=== PATIENT | female | born 1990 | race Caucasian/White ===

== ENCOUNTER 2016-09-20 09:38 | Inpatient (IN) | payer OTHER ==
[2016-09-20 09:53] VITALS: BMI 22.2
[2016-09-20] MEDS ORDERED: SODIUM CHLORIDE 1,000 ML IV STA (10:27)
[2016-09-20] MEDS ORDERED: morphine CARPU-JECT 4 MG/1 ML DISP.SYRIN IVPUSH ONE (10:27)
[2016-09-20] MEDS ORDERED: morphine CARPU-JECT 2 MG/1 ML DISP.SYRIN ONE (10:29)
--- NOTE | 2016-09-20 10:33 | PDOC ---
History of Present Illness - General Chief Complaint: Pain, Acute Stated Complaint: NAUSEA, LOWER PELVIC PAIN Time Seen by Provider: 09/20/16 10:01 History Source: Patient - History of Present Illness Timing/Duration: reports: getting worse Quality: reports: cramping Past History - Past Medical History Allergies/Adverse Reactions: Allergies Allergy/AdvReac Type Severity Reaction Status Date / Time ceftriaxone sodium Allergy Verified 09/20/16 09:53 [From Rocephin] Home Medications: Ambulatory Orders Levonorgestrel-Ethin Estradiol [Orsythia-28 Tablet] 1 each PO DAILY 03/27/15 Mesalamine [Lialda] 2.4 gm PO DAILY 03/27/15 Mesalamine Enema [Rowasa *Enema*] 7 gm RC HS #0 enema 03/28/15 Cholecalciferol (Vitamin D3) [Vitamin D3 -] 1,000 unit PO DAILY 09/20/16 Metronidazole 500 mg PO TID 09/20/16 Prednisone [Deltasone -] 20 mg PO BID 09/20/16 Anemia: No Asthma: No Cancer: No Cardiac Disorders: No CVA: No COPD: No CHF: No Dementia: No GI Disorders: Yes (COLITIS) Disorders: No HTN: No Hypercholesterolemia: No Liver Disease: No Seizures: No Thyroid Disease: No - Psycho/Social/Smoking Cessation Hx Suicidal Ideation: No Smoking History: Never smoked Hx Alcohol Use: Yes (OCCSIONALLY) Drug/Substance Use Hx: No Substance Use Type: None Review of Systems - Review of Systems Constitutional: No: Chills, Fever ABD/GI: Yes: Blood Streaked Bowels, Diarrhea, Nausea, Rectal Bleeding. No: Vomiting : No: Dysuria *Physical Exam - Vital Signs Last Vital Signs Temp Pulse Resp BP Pulse Ox 98.2 F 81 16 110/66 97 09/20/16 09:50 09/20/16 09:50 09/20/16 09:50 09/20/16 09:50 09/20/16 09:50 - Physical Exam General Appearance: Yes: Appropriately Dressed. No: Apparent Distress HEENT: positive: Normal Voice Neck: positive: Supple Respiratory/Chest: negative: Respiratory Distress Gastrointestinal/Abdominal: positive: Normal Bowel Sounds, Tender (to lower abd) , Soft. negative: Distended, Guarding, Rebound Musculoskeletal: negative: CVA Tenderness Integumentary: positive: Dry, Warm Neurologic: positive: Fully Oriented, Alert, Normal Mood/Affect ED Treatment Course - LABORATORY CBC & Chemistry Diagram: 09/20/16 10:50 09/20/16 10:50 Medical Decision Making - Medical Decision Making 09/20/16 10:29 25-year-old female history of ulcerative colitis, proctitis, no surgeries to date on medications, here with lower abdominal pain with bloody, watery diarrhea and nausea x several days. States she contacted her GI doctor last week and now on prednisone and flagyl, but feels that symptoms are worsening, especially in the mornings and at nights. No fever or chills. Has not had a CAT scan in several years per pt See exam IBD w/ abd pain and bloody diarrhea On pred and flagyl w/ no improvement Stable and well elsie +tp to lower abd -pain control -IVF -labs -?CT scan, will d/w w/ GI,Dr Ingram 09/20/16 10:32 09/20/16 10:58 Case d/w pt's GI who reccomends CT 09/20/16 14:10 CT with severe inflammatory colitis to right and transverse colon. No free air or abscess. Discussed with Dr. Flores who wants patient admitted. Orders placed by 09/20/16 14:51 *DC/Admit/Observation/Transfer Diagnosis at time of Disposition: Ulcerative colitis Qualifiers: Ulcerative colitis location: unspecified ulcerative colitis location Digestive disease complication type: with rectal bleeding Qualified Code(s): K51.911 - Ulcerative colitis, unspecified with rectal bleeding - Discharge Dispostion Condition at time of disposition: Stable Admit: Yes
[2016-09-20 11:10] LABS: BASOPHIL 0.2 % (0-2.0); EOSINOPHIL 0.8 % (0-4.5); MCH 29.8 pg (25.7-33.7); MCHC 33.4 g/dl (32.0-36.0); MEAN CELL VOLUME 89.3 fl (80-96); MEAN PLT VOLUME 8.3 fl (7.5-11.1); NEUTROPHILS 76.5 % (42.8-82.8); PLATELET COUNT 244 K/MM3 (134-434); RDW 12.6 % (11.6-15.6); WHITE BLOOD COUNT 9.7 K/mm3 (4.0-10.0)
[2016-09-20 11:33] LABS: ALBUMIN 3.5 g/dl (3.4-5.0); ANION GAP 9 (8-16); BILIRUBIN,TOTAL 0.2 mg/dL (0.2-1.0); CALCIUM 9.5 mg/dL (8.5-10.1); CO2 29 mmol/L (21-32); CREATININE 0.9 mg/dL (0.55-1.02); GLUCOSE,RANDOM 117 mg/dL (74-106); SGOT/AST 13 U/L (15-37); SGPT/ALT 20 U/L (12-78); TOT PROT 7.6 g/dl (6.4-8.2)
[2016-09-20 11:36] LABS: ALK PHOS 74 U/L (45-117)
[2016-09-20 11:44] LABS: INR 1.05 (0.82-1.09); PROTHROMBIN TIME (PATIENT) 11.6 SEC (9.98-11.88)
--- NOTE | 2016-09-20 12:11 | CON.GI ---
Consult Consult Specialty:: Gastroenterology Referred by:: BENY Castañeda Reason for Consultation:: Bloody diarrhea - History of Present Illness Chief Complaint: Abdominal cramps and bloody diarrhea for the past week. History of Present Illness: 25W with h/o ulcerative colitis most active in the rectosigmoid colon who developed diffuse colicky abdominal pain about 1 week ago with looser more frequent bowel movements. On 09/16 she developed blood diarrhea. The episodes however are confined to an rotary cutter feeder 2 hours session and then again about 10PM with no BMs in between. The flare coincides with onset of her menses. She denies fevers. She did have wisdom tooth extraction in 08/20 when she took a course of Z-miller. NO foreign travel. She did have C difficile colitis in the past. She was started on Flagyl and Prednisone 20mg BID on 09/[address] Wheeler in coverage. I last saw Manasa in 07/19 in the office for a flare of her colitis. I advised a trial of Azathioprine and discussed the immunosuppressive side effects and risk of lymphoma associated with it's usage. She had previously refused a return to a biologic agent as she developed leukopenia and pneumonia while on Remicade in the past. She expressed that she found it difficult to continue with me as she is living in [facility]. I referred her to Dr Chester Frazier but she has chosen to be followed by Dr. Tyler Bear but as yet has not met him. Her colitis was under good control with Lialda and Rowasa enemas since I last saw her until now. She has lost about 5 lbs this week. Her last colonoscopy was with me on 03/28/15 when she was found to only has proctitis. She has had a fistula in ano in the past. 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 Place of : [facility] History of Recent Travel: No Home Medications - Allergies Allergies/Adverse Reactions: Allergies Allergy/AdvReac Type Severity Reaction Status Date / Time ceftriaxone sodium Allergy Verified 09/20/16 09:53 [From Rocephin] - Home Medications Home Medications: Ambulatory Orders Levonorgestrel-Ethin Estradiol [Orsythia-28 Tablet] 1 each PO DAILY 03/27/15 Mesalamine [Lialda] 2.4 gm PO DAILY 03/27/15 Mesalamine Enema [Rowasa *Enema*] 7 gm RC HS #0 enema 03/28/15 Cholecalciferol (Vitamin D3) [Vitamin D3 -] 1,000 unit PO DAILY 09/20/16 Metronidazole 500 mg PO TID 09/20/16 Prednisone [Deltasone -] 20 mg PO BID 09/20/16 Family Disease History - Family Disease History Family Disease History: Other: Father (healthy), Mother (hyperlipidemia) Review of Systems - Review of Systems Constitutional: reports: Malaise, Unintentional Wgt. Loss Eyes: reports: No Symptoms HENT: reports: No Symptoms Neck: reports: No Symptoms Cardiovascular: reports: No Symptoms Respiratory: reports: No Symptoms Gastrointestinal: reports: Abdominal Pain, Diarrhea, Rectal Bleeding Genitourinary: reports: No Symptoms Integumentary: reports: No Symptoms Neurological: reports: No Symptoms Endocrine: reports: No Symptoms Hematology/Lymphatic: reports: No Symptoms Psychiatric: reports: Other (has stress at work) Physical Exam-GI Vital Signs: Vital Signs Temperature 98.2 F 09/20/16 09:50 Pulse Rate 81 09/20/16 09:50 Respiratory Rate 16 09/20/16 09:50 Blood Pressure 110/66 09/20/16 09:50 O2 Sat by Pulse Oximetry (%) 97 09/20/16 09:50 CBC,CMP WBC 9.7 K/mm3 (4.0-10.0) D 09/20/16 10:50 RBC 4.47 M/mm3 (3.60-5.2) 09/20/16 10:50 Hgb 13.3 GM/dL (10.7-15.3) 09/20/16 10:50 Hct 39.9 % (32.4-45.2) 09/20/16 10:50 MCV 89.3 fl (80-96) 09/20/16 10:50 MCHC 33.4 g/dl (32.0-36.0) 09/20/16 10:50 RDW 12.6 % (11.6-15.6) 09/20/16 10:50 Plt Count 244 K/MM3 (134-434) D 09/20/16 10:50 MPV 8.3 fl (7.5-11.1) 09/20/16 10:50 Neutrophils % 76.5 % (42.8-82.8) D 09/20/16 10:50 Lymphocytes % 13.3 % (8-40) D 09/20/16 10:50 Monocytes % 9.2 % (3.8-10.2) 09/20/16 10:50 Eosinophils % 0.8 % (0-4.5) 09/20/16 10:50 Basophils % 0.2 % (0-2.0) 09/20/16 10:50 Sodium 142 mmol/L (136-145) 09/20/16 10:50 Potassium 3.6 mmol/L (3.5-5.1) 09/20/16 10:50 Chloride 104 mmol/L (98-107) 09/20/16 10:50 Carbon Dioxide 29 mmol/L (21-32) 09/20/16 10:50 Anion Gap 9 (8-16) 09/20/16 10:50 BUN 14 mg/dL (7-18) D 09/20/16 10:50 Creatinine 0.9 mg/dL (0.55-1.02) D 09/20/16 10:50 Creat Clearance w eGFR > 60 (>60) 09/20/16 10:50 Random Glucose 117 mg/dL (74-106) H D 09/20/16 10:50 Calcium 9.5 mg/dL (8.5-10.1) 09/20/16 10:50 Total Bilirubin 0.2 mg/dL (0.2-1.0) D 09/20/16 10:50 AST 13 U/L (15-37) L 09/20/16 10:50 ALT 20 U/L (12-78) 09/20/16 10:50 Alkaline Phosphatase 74 U/L (45-117) D 09/20/16 10:50 Total Protein 7.6 g/dl (6.4-8.2) 09/20/16 10:50 Albumin 3.5 g/dl (3.4-5.0) 09/20/16 10:50 Constitutional: Yes: Well Nourished, Anxious Eyes: Yes: Conjunctiva Clear HENT: Yes: Atraumatic Neck: Yes: Supple Cardiovascular: Yes: Regular Rate and Rhythm Respiratory: Yes: CTA Bilaterally Gastrointestinal Inspection: Yes: WNL ...Auscultate: Yes: Normoactive Bowel Sounds ...Palpate: Yes: Soft, Other (nontender at present but has gotten morphine) ...Percussion: Yes: Dullness ...Rectal Exam: Yes: Guaiac Positive Musculoskeletal: Yes: WNL Extremities: Yes: WNL Edema: No Labs: CBC, BMP 09/20/16 10:50 09/20/16 10:50 INR, PTT INR 1.05 (0.82-1.09) 09/20/16 10:50 Problem List - Problems (1) Ulcerative colitis confined to rectum Code(s): K51.20 - ULCERATIVE (CHRONIC) PROCTITIS WITHOUT COMPLICATIONS (2) Bloody diarrhea Code(s): R19.7 - DIARRHEA, UNSPECIFIED (3) Abdominal pain Code(s): R10.9 - UNSPECIFIED ABDOMINAL PAIN (4) Weight loss Code(s): R63.4 - ABNORMAL WEIGHT LOSS Assessment/Plan Flare of ulcerative colitis vs Clostridia difficile colitis or both. Will obtain CT scan to help assess th extent of colitis and continue the steroids and Flagyl. I have discussed the need to provide a stool for C. diff toxin assay and for enteric pathogens. I have discussed the likely need for a colonoscopy this week to assess the extent and severity of her colitis which would guide further therapeutic decisions. She is aware of nash risks for perforation and hemorrhage. We again discussed azathioprine and the biologic agents being used for Crohn's Disease ad their risks of immune suppression and lymphoma risk. Her mother was present.
[2016-09-20] MEDS ORDERED: HYDROCORTISONE SOD SUCCINATE 2 ML ONE (13:52)
[2016-09-20] MEDS: DEXTROSE 5%-0.45% SALINE 1,000 ML IV SCH ×2 (14:00→18:53)
[2016-09-20] MEDS: HYDROCORTISONE SOD SUCCINATE 100 MG/2 ML VIAL IVPB SCH ×2 (14:20→18:47)
--- NOTE | 2016-09-20 15:58 | PN ---
Teaching Attending Note Name of Resident: Aggie Mac ATTENDING PHYSICIAN STATEMENT I saw and evaluated the patient. I reviewed the resident's note and discussed the case with the resident. I agree with the resident's findings and plan as documented. SUBJECTIVE:25 year old female with history of UC c/o 1 week history of worsening abdominal pain and bloody diarrhea. No fever. Took azithromycin 3 weeks ago for dental abscess. OBJECTIVE: Vital Signs Temperature 98.2 F 09/20/16 09:50 Pulse Rate 81 09/20/16 09:50 Respiratory Rate 16 09/20/16 09:50 Blood Pressure 110/66 09/20/16 09:50 O2 Sat by Pulse Oximetry (%) 97 09/20/16 09:50 HEENT AAO x 3 Neuro intact Abd soft mild tenderness Laboratory 09/20/16 09/20/16 09/20/16 10:50 10:50 10:50 WBC 9.7 K/mm3 D K/mm3 (4.0-10.0) RBC 4.47 M/mm3 M/mm3 (3.60-5.2) Hgb 13.3 GM/dL GM/dL (10.7-15.3) Hct 39.9 % % (32.4-45.2) MCV 89.3 fl fl (80-96) MCHC 33.4 g/dl g/dl (32.0-36.0) RDW 12.6 % % (11.6-15.6) Plt Count 244 K/MM3 D K/MM3 (134-434) MPV 8.3 fl fl (7.5-11.1) Neutrophils % 76.5 % D % (42.8-82.8) Lymphocytes % 13.3 % D % (8-40) Monocytes % 9.2 % % (3.8-10.2) Eosinophils % 0.8 % % (0-4.5) Basophils % 0.2 % % (0-2.0) INR Sodium 142 mmol/L mmol/L (136-145) Potassium 3.6 mmol/L mmol/L (3.5-5.1) Chloride 104 mmol/L mmol/L (98-107) Carbon Dioxide 29 mmol/L mmol/L (21-32) Anion Gap 9 (8-16) BUN 14 mg/dL D mg/dL (7-18) Creatinine 0.9 mg/dL D mg/dL (0.55-1.02) Creat Clearance w eGFR > 60 (>60) Random Glucose 117 mg/dL H D mg/dL (74-106) Calcium 9.5 mg/dL mg/dL (8.5-10.1) Total Bilirubin 0.2 mg/dL D mg/dL (0.2-1.0) AST 13 U/L L U/L (15-37) ALT 20 U/L U/L (12-78) Alkaline Phosphatase 74 U/L D U/L (45-117) Total Protein 7.6 g/dl g/dl (6.4-8.2) Albumin 3.5 g/dl g/dl (3.4-5.0) Urine HCG, Qual Negative Blood Type Antibody Screen 09/20/16 09/20/16 10:50 10:50 WBC RBC Hgb Hct MCV MCHC RDW Plt Count MPV Neutrophils % Lymphocytes % Monocytes % Eosinophils % Basophils % INR 1.05 (0.82-1.09) Sodium Potassium Chloride Carbon Dioxide Anion Gap BUN Creatinine Creat Clearance w eGFR Random Glucose Calcium Total Bilirubin AST ALT Alkaline Phosphatase Total Protein Albumin Urine HCG, Qual Blood Type A POSITIVE Antibody Screen Negative ASSESSMENT AND PLAN: 25 year old with abdominal pain and bloody diarrhea secondary to UC flare - r/o cdiff ( recent antibiotics) - IVF - pain control with IV morphine PRN - IV steroids high dose - colonoscopy when stable -monitor H&H - IV antibiotics Admit as inpatient , expected length of medically necessary hospitalization is greater then 2 midnights . -
[2016-09-20] MEDS: METRONIDAZOLE 500 MG PREMIXED 100 ML IVPB SCH (18:54)
--- NOTE | 2016-09-20 19:07 | HP ---
CHIEF COMPLAINT:blood diarrhe PCP: Dr. Ingram HISTORY OF PRESENT ILLNESS: 25 year old female with a pMHS of ulcerative colitis,(see's Dr. Ingram), on mesalaime and prenisone prn, complaining of three day history of watery-bloody diarrhea and abdominal/pelvic pain. Denies fever, n, v. Patient does state that she completed a course of antibiotics in Aug,. ER course was notable for: (1)CT scan : inflammatory changes; no free air/abscess Recent Travel: no PAST MEDICAL HISTORY: ulcerative colitis PAST SURGICAL HISTORY: no Social History: Smoking:no Alcohol:no Drugs: no Family History: Allergies ceftriaxone sodium [From Rocephin] Allergy (Verified 09/20/16 09:53) HOME MEDICATIONS: Home Medications Medication Instructions Recorded Levonorgestrel-Ethin Estradiol 1 each PO DAILY 03/27/15 [Orsythia-28 Tablet] Mesalamine [Lialda] 2.4 gm PO DAILY 03/27/15 Mesalamine Enema [Rowasa *Enema*] 7 gm RC HS #0 enema 03/28/15 Cholecalciferol (Vitamin D3) 1,000 unit PO DAILY 09/20/16 [Vitamin D3 -] Metronidazole 500 mg PO TID 09/20/16 Prednisone [Deltasone -] 20 mg PO BID 09/20/16 REVIEW OF SYSTEMS CONSTITUTIONAL: Absent: fever, chills, diaphoresis, generalized weakness, malaise, loss of appetite, weight change HEENT: Absent: rhinorrhea, nasal congestion, throat pain, throat swelling, difficulty swallowing, mouth swelling, ear pain, eye pain, visual changes CARDIOVASCULAR: Absent: chest pain, syncope, palpitations, irregular heart rate, lightheadedness , peripheral edema RESPIRATORY: Absent: cough, shortness of breath, dyspnea with exertion, orthopnea, wheezing, stridor, hemoptysis GASTROINTESTINAL: Positive: abdominal pain, hematochezia, diarrhea Absent: , abdominal distension, nausea, vomiting,, constipation, melena, GENITOURINARY: Absent: dysuria, frequency, urgency, hesitancy, hematuria, flank pain, genital pain MUSCULOSKELETAL: Absent: myalgia, arthralgia, joint swelling, back pain, neck pain SKIN: Absent: rash, itching, pallor HEMATOLOGIC/IMMUNOLOGIC: Absent: easy bleeding, easy bruising, lymphadenopathy, frequent infections ENDOCRINE: Absent: unexplained weight gain, unexplained weight loss, heat intolerance, cold intolerance NEUROLOGIC: Absent: headache, focal weakness or paresthesias, dizziness, unsteady gait, seizure, mental status changes, bladder or bowel incontinence PSYCHIATRIC: Absent: anxiety, depression, suicidal or homicidal ideation, hallucinations. PHYSICAL EXAMINATION Vital Signs - 24 hr 09/20/16 09/20/16 16:52 18:28 Temperature 98.6 F 98.6 F Pulse Rate 76 Pulse Rate [ 84 Left Radial] Respiratory 14 20 Rate Blood Pressure 116/60 Blood Pressure 112/69 [Right Arm] O2 Sat by Pulse 100 99 Oximetry (%) GENERAL: Awake, alert, and fully oriented, in no acute distress. HEAD: Normal with no signs of trauma. EYES: Pupils equal, round and reactive to light, extraocular movements intact, sclera anicteric, conjunctiva clear. No lid lag. EARS, NOSE, THROAT: Ears normal, nares patent, oropharynx clear without exudates. Moist mucous membranes. NECK: Normal range of motion, supple without lymphadenopathy, JVD, or masses. LUNGS: Breath sounds equal, clear to auscultation bilaterally. No wheezes, and no crackles. No accessory muscle use. HEART: Regular rate and rhythm, normal S1 and S2 without murmur, rub or gallop. ABDOMEN: Soft, tender with palpation of lower abdomen/pelvis, not distended, normoactive bowel sounds, no guarding, no rebound, no masses. No hepatomegaly or splenomegaly. MUSCULOSKELETAL: Normal range of motion at all joints. No bony deformities or tenderness. No CVA tenderness. UPPER EXTREMITIES: 2+ pulses, warm, well-perfused. No cyanosis. No clubbing. No peripheral edema. LOWER EXTREMITIES: 2+ pulses, warm, well-perfused. No calf tenderness. No peripheral edema. NEUROLOGICAL: Cranial nerves II-XII intact. Normal speech. Normal gait. PSYCHIATRIC: Cooperative. Good eye contact. Appropriate mood and affect. SKIN: Warm, dry, normal turgor, no rashes or lesions noted, normal capillary refill. Current Medications Generic Name Dose Route Start Last Admin Trade Name Freq PRN Reason Stop Dose Admin Hydrocortisone Sodium Succinate 100 mg 09/20/16 12:30 09/20/16 18:47 Solu-Cortef - IVPB Not Given Q8H-IV CASH Metronidazole 100 mls @ 100 mls/hr 09/20/16 18:00 09/20/16 18:54 Flagyl 500mg Premixed Ivpb - IVPB 09/27/16 17:59 100 mls/hr Q8H-IV CASH Administration Dextrose/Sodium Chloride 1,000 mls @ 125 mls/hr 09/20/16 12:30 09/20/16 18:53 D5-1/2ns - IV 125 mls/hr ASDIR CASH Administration ASSESSMENT/PLAN: 25 year old female with a PMHx of ulcerative colitis, on mesalamine and prn prednisone, follow Dr. Ingram, presents with hematochezia, diarrhea and abdominal pain x3 days. admitted for ulcertive colitis flare up 1. Diarrhea secondary to ulcerative colitis flare vs c diff -CT scan showing severely inflamed colitis worse at hepatic flexure; no free air or abscess -Flyagl 599mg IVPB -Hydrocortisone Sodium Succinate 100mg IVPB -protonix 40mg po daily -D5 1/2 NS 125mls hr -clear liq diet -colonoscopy as per GI -GI consult FEN: Fluids: D5NS 125mls.hr Electrolytes: wnl Diet: clear liq VTE prophylaxis: ambulate; scd Disposition: acute flare; iv antbx, steroids, possible colonoscopy Problem List - Problem (1) Abdominal pain Code(s): R10.9 - UNSPECIFIED ABDOMINAL PAIN (2) Bloody diarrhea Code(s): R19.7 - DIARRHEA, UNSPECIFIED (3) Ulcerative colitis Code(s): K51.90 - ULCERATIVE COLITIS, UNSPECIFIED, WITHOUT COMPLICATIONS Qualifiers: Ulcerative colitis location: unspecified ulcerative colitis location Digestive disease complication type: with rectal bleeding Qualified Code(s) : K51.911 - Ulcerative colitis, unspecified with rectal bleeding (4) Ulcerative colitis confined to rectum Code(s): K51.20 - ULCERATIVE (CHRONIC) PROCTITIS WITHOUT COMPLICATIONS Visit type - Emergency Visit Emergency Visit: Yes ED Registration Date: 09/20/16 Care time: The patient presented to the Emergency Department on the above date and was hospitalized for further evaluation of their emergent condition. - New Patient This patient is new to me today: Yes Date on this admission: 09/20/16 - Critical Care Critical Care patient: No
[2016-09-21] MEDS: HYDROCORTISONE SOD SUCCINATE 100 MG/2 ML VIAL IVPB SCH ×3 (01:15→18:05)
[2016-09-21] MEDS: METRONIDAZOLE 500 MG PREMIXED 100 ML IVPB SCH ×3 (01:15→18:55)
[2016-09-21] MEDS ORDERED: morphine CARPU-JECT 2 MG/1 ML DISP.SYRIN IVPUSH PRN (03:13)
[2016-09-21] MEDS ORDERED: ACETAMINOPHEN 325 MG TABLET (FP) ONE (03:17)
[2016-09-21] MEDS: ACETAMINOPHEN 325 MG TABLET (FP) PO PRN (03:19)
[2016-09-21] MEDS: DEXTROSE 5%-0.45% SALINE 1,000 ML IV SCH ×2 (05:18→21:58)
[2016-09-21 08:11] LABS: BASOPHIL 0.1 % (0-2.0); EOSINOPHIL 0.1 % (0-4.5); MCH 29.7 pg (25.7-33.7); MCHC 33.3 g/dl (32.0-36.0); MEAN CELL VOLUME 89.3 fl (80-96); MEAN PLT VOLUME 8.3 fl (7.5-11.1); NEUTROPHILS 77.7 % (42.8-82.8); PLATELET COUNT 195 K/MM3 (134-434); RDW 12.8 % (11.6-15.6); WHITE BLOOD COUNT 7.9 K/mm3 (4.0-10.0)
[2016-09-21 08:51] LABS: ALBUMIN 2.8 g/dl (3.4-5.0); ANION GAP 10 (8-16); CALCIUM 8.4 mg/dL (8.5-10.1); CO2 26 mmol/L (21-32); GLUCOSE,RANDOM 149 mg/dL (74-106); SGOT/AST 12 U/L (15-37)
[2016-09-21 10:13] LABS: ALK PHOS 57 U/L (45-117); BILIRUBIN,TOTAL 0.2 mg/dL (0.2-1.0); C-REACTIVE PROTEIN 3.4 MG/DL (0.00-0.3); CREATININE 0.9 mg/dL (0.55-1.02); SGPT/ALT 15 U/L (12-78); TOT PROT 6.1 g/dl (6.4-8.2)
[2016-09-21] MEDS: PANTOPRAZOLE SODIUM 100 ML IVPB SCH (10:46)
--- NOTE | 2016-09-21 15:13 | PN ---
Teaching Attending Note Name of Resident: Aggie Mac ATTENDING PHYSICIAN STATEMENT I saw and evaluated the patient. I reviewed the resident's note and discussed the case with the resident. I agree with the resident's findings and plan as documented. SUBJECTIVE:had 1 loose stool in the middle of the night with minimal blood on the toilet paper. no repeated episodes since then. tolerating liquid diet and requesting to eat solid food. states that she has been controlled on mesalamine and suppositories since her dx of UC in 2011. at that time she was initially treated for cdiff and then had colonoscopy and dx with UC on bx but was limited to the rectum. would have short boughts of loose stool that would self resolve in several days, last episode several months ago. has not been on steroids for over a year. denies CP, SOB,fever, chills, N/V/C OBJECTIVE: Last Vital Signs Temp Pulse Resp BP Pulse Ox 98.4 F 72 18 106/65 99 09/21/16 14:42 09/21/16 14:42 09/21/16 14:42 09/21/16 14:42 09/20/16 18:28 General NAD Abdomen RUQ and B/L LQ tenderness RUQ>RLQ&LLQ. +BS no rebound or guarding ASSESSMENT AND PLAN: 25 yo F with PMH UC presented to the ER and was admitted for further evaluation of their emergent condition 1. Moderate UC flare- clinically improved. autoimmune panel and stool studies sent and pending. tolerating clear liquid diet. cont IVF, steroids and Flagyl day 2. will require colonoscopy likely on this admission. TB testing for possibility of initiation of biologic at this time as extent of UC appears to have spread to the R side and tranverse colon. GI on board. 2. Normocytic anemia- likely dilutional with aggressive hydration. no indication for txn. 3. DVT ppx- EAM
--- NOTE | 2016-09-21 15:27 | PN ---
Physical Exam: SUBJECTIVE: Patient seen and examined, one episode of diarrhea overnight. Non bloody. Afebrile. Still with mild abdominal tenderness. OBJECTIVE: Vital Signs Period Temp Pulse Resp BP Sys/Motta Pulse Ox Last 24 Hr 97.9 F-98.6 F 71-88 14-20 106-116/60-71 99-100 GENERAL: The patient is awake, alert, and fully oriented, in no acute distress. HEAD: Normal with no signs of trauma. LUNGS: Breath sounds equal, clear to auscultation bilaterally, no wheezes, no crackles, no accessory muscle use. HEART: Regular rate and rhythm, S1, S2 without murmur, rub or gallop. ABDOMEN: Soft, tender with palpation b/l LQ, nondistended, normoactive bowel sounds, no guarding, no rebound, no hepatosplenomegaly, no masses. EXTREMITIES: 2+ pulses, warm, well-perfused, no edema. NEUROLOGICAL: Cranial nerves II through XII grossly intact. Normal speech, gait not observed. PSYCH: Normal mood, normal affect. SKIN: Warm, dry, normal turgor, no rashes or lesions noted Laboratory Results - last 24 hr 09/21/16 09/21/16 07:10 07:10 WBC 7.9 RBC 3.70 Hgb 11.0 D Hct 33.1 D MCV 89.3 MCHC 33.3 RDW 12.8 Plt Count 195 D MPV 8.3 Neutrophils % 77.7 Lymphocytes % 13.1 Monocytes % 9.0 Eosinophils % 0.1 D Basophils % 0.1 Sodium 141 Potassium 3.6 Chloride 105 Carbon Dioxide 26 Anion Gap 10 BUN 7 D Creatinine 0.9 Creat Clearance w eGFR > 60 Random Glucose 149 H D Calcium 8.4 L Total Bilirubin 0.2 AST 12 L ALT 15 D Alkaline Phosphatase 57 D C-Reactive Protein 3.4 H Total Protein 6.1 L Albumin 2.8 L Active Medications Generic Name Dose Route Start Last Admin Trade Name Freq PRN Reason Stop Dose Admin Acetaminophen 650 mg 09/21/16 03:15 09/21/16 03:19 Tylenol - PO 650 mg Q6H PRN Administration FEVER OR PAIN Hydrocortisone Sodium Succinate 100 mg 09/20/16 12:30 09/21/16 10:18 Solu-Cortef - IVPB 100 mg Q8H-IV CASH Administration Metronidazole 100 mls @ 100 mls/hr 09/20/16 18:00 09/21/16 09:01 Flagyl 500mg Premixed Ivpb - IVPB 09/27/16 17:59 100 mls/hr Q8H-IV CASH Administration Dextrose/Sodium Chloride 1,000 mls @ 125 mls/hr 09/20/16 12:30 09/21/16 05:18 D5-1/2ns - IV 125 mls/hr ASDIR CASH Administration Pantoprazole Sodium 100 mls @ 200 mls/hr 09/21/16 10:00 09/21/16 10:46 Protonix 40mg Ivpb (Pre-Docked) IVPB 200 mls/hr DAILY CASH Administration ASSESSMENT/PLAN: 25 year old female with a PMHx of ulcerative colitis, on mesalamine and prn prednisone, follow Dr. Ingram, presents with hematochezia, diarrhea and abdominal pain x3 days. Admitted for ulcertive colitis flare up. 1. Diarrhea secondary to ulcerative colitis flare vs c diff -CT scan showing severely inflamed colitis worse at hepatic flexure; no free air or abscess -Flyagl 500mg IVPB q8h -Hydrocortisone Sodium Succinate 100mg IVPB -protonix 40mg po daily -D5 1/2 NS 125mls hr -clear liq diet -colonoscopy as per GI -elevated CRP -stool studies pending; serology and immunology pending FEN: Fluids: D5NS 125mls.hr Electrolytes: wnl Diet: clear liq VTE prophylaxis: ambulate; scd Disposition: acute flare; iv antbx, steroids, possible colonoscopy Problem List - Problems (1) Abdominal pain Code(s): R10.9 - UNSPECIFIED ABDOMINAL PAIN (2) Bloody diarrhea Code(s): R19.7 - DIARRHEA, UNSPECIFIED (3) Ulcerative colitis Code(s): K51.90 - ULCERATIVE COLITIS, UNSPECIFIED, WITHOUT COMPLICATIONS Qualifiers: Qualified Code(s): K51.911 - Ulcerative colitis, unspecified with rectal bleeding (4) Ulcerative colitis confined to rectum Code(s): K51.20 - ULCERATIVE (CHRONIC) PROCTITIS WITHOUT COMPLICATIONS Visit type - Emergency Visit Emergency Visit: Yes ED Registration Date: 09/20/16 Care time: The patient presented to the Emergency Department on the above date and was hospitalized for further evaluation of their emergent condition. - New Patient This patient is new to me today: No - Critical Care Critical Care patient: No
--- NOTE | 2016-09-21 17:09 | PN ---
GI Progress Note Subjective: Some abdominal cramping No diarrhea today - Objective Vital Signs: Vital Signs Temperature 98.4 F 09/21/16 14:42 Pulse Rate 72 09/21/16 14:42 Respiratory Rate 18 09/21/16 14:42 Blood Pressure 106/65 09/21/16 14:42 O2 Sat by Pulse Oximetry (%) 99 09/20/16 18:28 Constitutional: Calm Eyes: No: Sclera Icterus Cardiovascular: Yes: Regular Rate and Rhythm Respiratory: Yes: CTA Bilaterally Gastrointestinal Inspection: No: Distention ...Auscultate: Yes: Normoactive Bowel Sounds ...Palpate: Yes: Tenderness (Mild TTP llq/rlq). No: Hepatomegaly, Splenomegaly , Tenderness, Rebound ...Percussion: No: Tympanitic Edema: No Neurological: Yes: Alert, Oriented Labs: CBC, BMP 09/21/16 07:10 09/21/16 07:10 INR, PTT INR 1.05 (0.82-1.09) 09/20/16 10:50 Hepatic Panel Total Bilirubin 0.2 mg/dL (0.2-1.0) 09/21/16 07:10 AST 12 U/L (15-37) L 09/21/16 07:10 ALT 15 U/L (12-78) D 09/21/16 07:10 Alkaline Phosphatase 57 U/L (45-117) D 09/21/16 07:10 Albumin 2.8 g/dl (3.4-5.0) L 09/21/16 07:10 Microbiology 09/21/16 02:00 Stool Clostridium difficile Antigen (MILE) - Neg 09/21/16 02:00 Stool Clostridium difficile Toxin Assay - Neg 09/21/16 02:00 Colon Fluid Parasite Direct Smear - Neg 09/21/16 02:00 Colon Fluid Giardia Antigen (MILE) - Neg Laboratory Tests 09/21/16 09/21/16 09/21/16 07:10 07:10 07:10 C-Reactive Protein 3.4 H TPMT Activity, Quant Pending S.cerevisiae IgG Ab Pending S. cerevisiae IgG/IgA Pending - ....Imaging Cat Scan: Report Reviewed (inflammatory process affecting proximal colon), Image Reviewed Problem List - Problems (1) Ulcerative colitis Assessment/Plan: Suspected UC flare with response to IV steroids Clinically well appearing with some TTP in lower quadrants, no guarding / rebound Should be on DVT prophylaxis with SC heparin in setting of suspected flare given increased risk for VTE Plan for colonoscopy tomorrow 09/22/16 to assess extent of disease (previously described as distal colon / mid transverse involvement) Code(s): K51.90 - ULCERATIVE COLITIS, UNSPECIFIED, WITHOUT COMPLICATIONS Qualifiers: Ulcerative colitis location: unspecified ulcerative colitis location Digestive disease complication type: with rectal bleeding Qualified Code(s) : K51.911 - Ulcerative colitis, unspecified with rectal bleeding
[2016-09-21] MEDS ORDERED: BISACODYL 5 MG TABLET.DR (FP) PO ONE (17:12)
[2016-09-21] MEDS ORDERED: POLYETHYLENE GLYCOL 3350 255 GM BTL PO ONE (18:00)
[2016-09-21] MEDS: HEPARIN NA (PORCINE) 5,000 UNITS/ML 1ML VIAL SQ SCH (21:58)
[2016-09-22] MEDS: HYDROCORTISONE SOD SUCCINATE 100 MG/2 ML VIAL IVPB SCH ×2 (01:02→10:00)
[2016-09-22] MEDS: METRONIDAZOLE 500 MG PREMIXED 100 ML IVPB SCH ×3 (01:03→17:38)
[2016-09-22 07:23] LABS: MCH 29.9 pg (25.7-33.7); MCHC 33.7 g/dl (32.0-36.0); MEAN CELL VOLUME 88.6 fl (80-96); MEAN PLT VOLUME 8.1 fl (7.5-11.1); PLATELET COUNT 229 K/MM3 (134-434); RDW 12.6 % (11.6-15.6); WHITE BLOOD COUNT 7.1 K/mm3 (4.0-10.0)
[2016-09-22] MEDS ORDERED: PROPOFOL 60 ML ONE (09:18)
[2016-09-22] MEDS ORDERED: LIDOCAINE HCL/PF 2% SDV 5ML VIAL ONE (09:18)
[2016-09-22 09:23] LABS: METAMYELOCYTE 1 % (0-2)
[2016-09-22 09:46] LABS: ALBUMIN 2.8 g/dl (3.4-5.0); ALK PHOS 61 U/L (45-117); ANION GAP 14 (8-16); BILIRUBIN,TOTAL 0.3 mg/dL (0.2-1.0); CALCIUM 8.3 mg/dL (8.5-10.1); CO2 25 mmol/L (21-32); CREATININE 0.8 mg/dL (0.55-1.02); GLUCOSE,RANDOM 147 mg/dL (74-106); SGOT/AST 17 U/L (15-37); SGPT/ALT 25 U/L (12-78); TOT PROT 6.3 g/dl (6.4-8.2)
[2016-09-22] MEDS: PANTOPRAZOLE SODIUM 100 ML IVPB SCH (10:00)
[2016-09-22] MEDS ORDERED: ACETAMINOPHEN INJECTION 100 ML IVPB ONE (10:07)
--- NOTE | 2016-09-22 10:55 | PN ---
Progress Note (short form) - Note Progress Note: GI Procedure NOte: Please see colonoscopy report. Uniformly distributed moderately severe ulcerative colitis was noted so the colonoscopy was limited to the transverse colon level. Initiation of a biologic agent as an outpatient was advised. Manasa and her family are agreeable. Will try to advance diet. When tolerated can discharge Problem List - Problems (1) Ulcerative colitis confined to rectum Code(s): K51.20 - ULCERATIVE (CHRONIC) PROCTITIS WITHOUT COMPLICATIONS (2) Bloody diarrhea Code(s): R19.7 - DIARRHEA, UNSPECIFIED (3) Abdominal pain Code(s): R10.9 - UNSPECIFIED ABDOMINAL PAIN (4) Weight loss Code(s): R63.4 - ABNORMAL WEIGHT LOSS
[2016-09-22] MEDS: KCL 10 MEQ IVPB 100 ML IVPB SCH ×3 (11:21→13:14)
[2016-09-22] MEDS: POTASSIUM CHLORIDE TABS 20 MEQ TABLET.ER (FP) PO SCH ×2 (14:15→21:42)
[2016-09-22] MEDS: predniSONE 20 MG TABLET (UD) PO SCH (14:15)
[2016-09-22] MEDS: DEXTROSE 5%-0.45% SALINE 1,000 ML IV SCH (14:51)
--- NOTE | 2016-09-22 15:53 | PN ---
Physical Exam: SUBJECTIVE: Patient seen and examined, bowel prep last night, colonoscopy today. No new events. Mild abdominal tenderness. No n,v, fever. OBJECTIVE: Vital Signs Period Temp Pulse Resp BP Sys/Motta Pulse Ox Last 24 Hr 97.9 F-98.6 F 49-71 12-20 104-129/63-78 97-100 GENERAL: The patient is awake, alert, and fully oriented, in no acute distress. HEAD: Normal with no signs of trauma. EYES: PERRL, extraocular movements intact, sclera anicteric, conjunctiva clear. No ptosis. ENT: Ears normal, nares patent, oropharynx clear without exudates, moist mucous membranes. NECK: Trachea midline, full range of motion, supple. LUNGS: Breath sounds equal, clear to auscultation bilaterally, no wheezes, no crackles, no accessory muscle use. HEART: Regular rate and rhythm, S1, S2 without murmur, rub or gallop. ABDOMEN: Soft, tender lower quadrants, nondistended, normoactive bowel sounds, no guarding, no rebound, no hepatosplenomegaly, no masses. EXTREMITIES: 2+ pulses, warm, well-perfused, no edema. NEUROLOGICAL: Cranial nerves II through XII grossly intact. Normal speech, gait not observed. PSYCH: Normal mood, normal affect. SKIN: Warm, dry, normal turgor, no rashes or lesions noted Laboratory Results - last 24 hr 09/21/16 09/22/16 09/22/16 07:10 06:30 06:30 WBC 7.1 RBC 3.97 Hgb 11.9 Hct 35.1 MCV 88.6 MCHC 33.7 RDW 12.6 Plt Count 229 MPV 8.1 Neutrophils % 60.0 D Lymphocytes % 19.0 D Monocytes % 12.0 H Band Neutrophils 7.0 Metamyelocytes 1 Promyelocytes 1 Differential Comment Manual diff done RBC Morphology Appears normal Morphology Comment Slide scanned Sodium 144 Potassium 3.1 L Chloride 105 Carbon Dioxide 25 Anion Gap 14 BUN 4 L D Creatinine 0.8 Creat Clearance w eGFR > 60 Random Glucose 147 H Calcium 8.3 L Total Bilirubin 0.3 D AST 17 D ALT 25 D Alkaline Phosphatase 61 Total Protein 6.3 L Albumin 2.8 L Vitamin D 25-Hydroxy 37.8 Active Medications Generic Name Dose Route Start Last Admin Trade Name Freq PRN Reason Stop Dose Admin Acetaminophen 650 mg 03/21/17 03:15 09/21/16 03:19 Tylenol - PO 650 mg Q6H PRN Administration FEVER OR PAIN Heparin Sodium (Porcine) 5,000 unit 09/21/16 22:00 09/21/16 21:58 Heparin - SQ Not Given BID CASH Metronidazole 100 mls @ 100 mls/hr 09/20/16 18:00 09/22/16 11:21 Flagyl 500mg Premixed Ivpb - IVPB 09/27/16 17:59 100 mls/hr Q8H-IV CASH Administration Dextrose/Sodium Chloride 1,000 mls @ 125 mls/hr 09/20/16 12:30 09/22/16 14:51 D5-1/2ns - IV 125 mls/hr ASDIR CASH Administration Potassium Chloride 40 meq 09/22/16 14:15 09/22/16 14:15 K-Dur - PO 09/22/16 22:01 40 meq 1400,2200 CASH Administration Prednisone 40 mg 09/22/16 15:00 09/22/16 14:15 Deltasone - PO 40 mg DAILY CASH Administration ASSESSMENT/PLAN: 25 year old female with a PMHx of ulcerative colitis, on mesalamine and prn prednisone, follow Dr. Ingram, presents with hematochezia, diarrhea and abdominal pain x3 days. Admitted for ulcertive colitis flare up. 1. 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:po if no more diarrhea Electrolytes: wnl Diet: ffull liq; advance as tolerate VTE prophylaxis: ambulate Disposition: acute flare; iv antbx, steroids, Problem List - Problems (1) Abdominal pain Code(s): R10.9 - UNSPECIFIED ABDOMINAL PAIN (2) Bloody diarrhea Code(s): R19.7 - DIARRHEA, UNSPECIFIED (3) Ulcerative colitis Code(s): K51.90 - ULCERATIVE COLITIS, UNSPECIFIED, WITHOUT COMPLICATIONS Qualifiers: Qualified Code(s): K51.911 - Ulcerative colitis, unspecified with rectal bleeding (4) Ulcerative colitis confined to rectum Code(s): K51.20 - ULCERATIVE (CHRONIC) PROCTITIS WITHOUT COMPLICATIONS Visit type - Emergency Visit Emergency Visit: Yes ED Registration Date: 09/20/16 Care time: The patient presented to the Emergency Department on the above date and was hospitalized for further evaluation of their emergent condition. - New Patient This patient is new to me today: No - Critical Care Critical Care patient: No - Discharge Referral Referred to [facility] Med P.C.: No
--- NOTE | 2016-09-22 15:56 | PN ---
Teaching Attending Note Name of Resident: Aggie Mac ATTENDING PHYSICIAN STATEMENT I saw and evaluated the patient. I reviewed the resident's note and discussed the case with the resident. I agree with the resident's findings and plan as documented. SUBJECTIVE:c/o abdominal pain but improved since admission. no loose stools today but some rectal bleeding she noted when trying to use the restroom. denies CP, fever, chills OBJECTIVE: Last Vital Signs Temp Pulse Resp BP Pulse Ox 98.1 F 66 16 129/69 98 09/22/16 14:00 09/22/16 14:00 09/22/16 14:00 09/22/16 14:00 09/22/16 10:40 General NAD Abdomen LQ tenderness no rebound or guarding ASSESSMENT AND PLAN: 25 yo F with PMH UC presented to the ER and was admitted for further evaluation of their emergent condition 1. Moderate UC flare- clinically improved. stool studies negative. colonoscopy done. diet advanced to liquids, did not eat much but tolerated. on flagyl day 3 and steroids, now converted to po. possibility of initiating biologic agent on discharge. GI on board. 2. Normocytic anemia- hgb stablized. will monitor in presence of rectal bleeding 3. hypokalemia- did not tolerate potassium IV. po given 4. DVT ppx-hep sq
[2016-09-22] MEDS: ACETAMINOPHEN 325 MG TABLET (FP) PO PRN ×2 (16:57→21:42)
[2016-09-22] MEDS: HEPARIN NA (PORCINE) 5,000 UNITS/ML 1ML VIAL SQ SCH (21:25)
[2016-09-23] MEDS: DEXTROSE 5%-0.45% SALINE 1,000 ML IV SCH ×3 (01:31→23:12)
[2016-09-23] MEDS: METRONIDAZOLE 500 MG PREMIXED 100 ML IVPB SCH ×3 (02:31→17:22)
[2016-09-23 07:35] LABS: MCH 29.3 pg (25.7-33.7); MCHC 33.3 g/dl (32.0-36.0); MEAN CELL VOLUME 87.9 fl (80-96); MEAN PLT VOLUME 7.7 fl (7.5-11.1); PLATELET COUNT 211 K/MM3 (134-434); RDW 12.5 % (11.6-15.6); WHITE BLOOD COUNT 8.7 K/mm3 (4.0-10.0)
[2016-09-23] MEDS ORDERED: ONDANSETRON *ODT* 4 MG TABLET SL PRN (07:35)
[2016-09-23] MEDS ORDERED: ONDANSETRON 4 MG TABLET PO PRN (07:42)
[2016-09-23 08:08] LABS: C-REACTIVE PROTEIN 3.3 MG/DL (0.00-0.3); CALCIUM 7.8 mg/dL (8.5-10.1); CREATININE 0.8 mg/dL (0.55-1.02)
[2016-09-23 09:30] LABS: PLATELET ESTIMATE ADEQUATE (NORMAL)
[2016-09-23] MEDS: predniSONE 20 MG TABLET (UD) PO SCH (09:53)
[2016-09-23] MEDS: HEPARIN NA (PORCINE) 5,000 UNITS/ML 1ML VIAL SQ SCH ×2 (09:59→21:51)
[2016-09-23] MEDS ORDERED: KCL 10 MEQ IVPB 100 ML IVPB SCH (14:15)
--- NOTE | 2016-09-23 14:26 | PATH ---
Surgical Pathology Report Patient Name: UMM TYLER [facility]. Rec. #: [id number] /Age/Gender: 1990 (Age: 25) / F Account: [id number] Location: [address] [place] [address]/[facility] Taken: 09/20/2016 Received: 09/22/2016 Reported: 09/23/2016 Physicians: Griffin Watt M.D. Specimen(s) Received A: BX PROXIMAL TRANSVERSE B: BX DISTAL TRANSVERSE C: BX SIGMOID D: BX RECTUM Clinical History Colitis [place] ulcerative colitis Final Diagnosis A. COLON, PROXIMAL TRANSVERSE, BIOPSY: COLONIC MUCOSA WITH ACTIVE MILD TO MODERATE CHRONIC COLITIS WITH FOCAL CRYPTITIS, LAMINA PROPRIA EDEMA AND FOCAL MILD CRYPT ALTERATION. NO EVIDENCE OF GRANULOMATA OR DYSPLASIA. B. COLON, DISTAL TRANSVERSE, BIOPSY: COLONIC MUCOSA WITH ACTIVE MODERATE CHRONIC COLITIS WITH FOCAL CRYPTITIS AND FOCAL MILD CRYPT ALTERATION. NO EVIDENCE OF GRANULOMATA OR DYSPLASIA. C. COLON, SIGMOID, BIOPSY: COLONIC MUCOSA THIS ACTIVE MODERATE CHRONIC COLITIS WITH CRYPT COLITIS AND MILD CRYPT ALTERATION. NOTE EVIDENCE OF GRANULOMATA OR DYSPLASIA. D. RECTUM, BIOPSY: RECTAL MUCOSA WITH ACTIVE MODERATE TO MARKED CHRONIC PROCTITIS WITH CRYPTITIS, FOCAL GRANULATION TISSUE FORMATION AND CRYPT ALTERATION. NO EVIDENCE OF GRANULOMATA OR DYSPLASIA. 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 Clinical and endoscopic correlations are suggested. Electronically Signed Terrance Verdin M.D. Gross Description A. Received in formalin, labeled "biopsy proximal transverse" are 2 fairchild, irregular portions of soft tissue averaging 0.2 cm in greatest dimension. The specimens are submitted in toto in one cassette. B. Received in formalin, labeled "biopsy distal transverse" are 2 fairchild, irregular portions of soft tissue averaging 0.4 cm in greatest dimension. The specimens are submitted in toto in one cassette. C. Received in formalin, labeled "biopsy sigmoid" are 2 fairchild, irregular portions of soft tissue measuring 0.2 and 0.3 cm in greatest dimension. The specimens are submitted in toto in one cassette. D. Received in formalin, labeled "biopsy rectum" is a fairchild, irregular portion of soft tissue measuring 0.7 cm in greatest dimension. The specimen is submitted in toto in one cassette. 09/22/201609/22/2016
--- NOTE | 2016-09-23 14:43 | PN ---
Physical Exam: SUBJECTIVE: Patient seen and examined, admits to nine episodes of bloody diarrhea last night, no fever, chilld, nausea, vomiting. Tolerated full liquid diet yesterday. OBJECTIVE: Vital Signs Period Temp Pulse Resp BP Sys/Motta Pulse Ox Last 24 Hr 97.9 F-98.7 F 61-82 20-20 115-128/65-77 98 GENERAL: The patient is pale awake, alert, and fully oriented, in no acute distress. HEAD: Normal with no signs of trauma. LUNGS: Breath sounds equal, clear to auscultation bilaterally, no wheezes, no crackles, no accessory muscle use. HEART: Regular rate and rhythm, S1, S2 without murmur, rub or gallop. ABDOMEN: Soft, tender b/l lower quadrants, nondistended, normoactive bowel sounds, no guarding, no rebound, no hepatosplenomegaly, no masses. EXTREMITIES: 2+ pulses, warm, well-perfused, no edema. NEUROLOGICAL: Cranial nerves II through XII grossly intact. Normal speech, gait not observed. PSYCH: Normal mood, normal affect. SKIN: Warm, dry, normal turgor, no rashes or lesions noted Laboratory Results - last 24 hr 09/21/16 09/23/16 09/23/16 07:10 06:20 06:20 WBC 8.7 RBC 3.99 Hgb 11.7 Hct 35.1 MCV 87.9 MCHC 33.3 RDW 12.5 Plt Count 211 MPV 7.7 Neutrophils % 46.0 D Lymphocytes % 31.0 D Monocytes % 13.0 H Eosinophils % 1.0 D Band Neutrophils 9.0 D Differential Comment Manual diff done Platelet Estimate Adequate Retic Count 1.33 Sodium 142 Potassium 3.1 L Chloride 107 Carbon Dioxide 26 Anion Gap 9 BUN 6 L D Creatinine 0.8 Random Glucose 109 H D Calcium 7.8 L C-Reactive Protein 3.3 H D SUSHANT Screen Negative Active Medications Generic Name Dose Route Start Last Admin Trade Name Freq PRN Reason Stop Dose Admin Acetaminophen 650 mg 09/21/16 03:15 09/22/16 21:42 Tylenol - PO 650 mg Q6H PRN Administration FEVER OR PAIN Heparin Sodium (Porcine) 5,000 unit 09/21/16 22:00 09/23/16 09:59 Heparin - SQ Not Given BID CASH Metronidazole 100 mls @ 100 mls/hr 09/20/16 18:00 09/23/16 09:53 Flagyl 500mg Premixed Ivpb - IVPB 09/27/16 17:59 100 mls/hr Q8H-IV CASH Administration Dextrose/Sodium Chloride 1,000 mls @ 125 mls/hr 09/20/16 12:30 09/23/16 08:32 D5-1/2ns - IV 125 mls/hr ASDIR CASH Administration Potassium Chloride 100 mls @ 100 mls/hr 09/23/16 14:15 Potassium Chloride 10 Meq Premix Ivpb - IVPB 09/23/16 16:14 Q60M CASH Ondansetron HCl 4 mg 09/23/16 07:42 09/23/16 07:46 Zofran - PO 4 mg Q6H PRN Administration NAUSEA AND/OR VOMITING Prednisone 40 mg 09/22/16 15:00 09/23/16 09:53 Deltasone - PO 40 mg DAILY CASH Administration ASSESSMENT/PLAN: 25 year old female with a PMHx of ulcerative colitis, on mesalamine and prn prednisone, follow Dr. Ingram, presents with hematochezia, diarrhea and abdominal pain x3 days. Admitted for ulcertive colitis flare up. 1. 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: Fluids:po /ivf if persitnat diarrhea; Electrolytes: hypokalemia; replace Diet: full liq; advance as tolerate VTE prophylaxis: ambulate Disposition: acute flare; iv antbx, steroids, Problem List - Problems (1) Abdominal pain Code(s): R10.9 - UNSPECIFIED ABDOMINAL PAIN (2) Bloody diarrhea Code(s): R19.7 - DIARRHEA, UNSPECIFIED (3) Ulcerative colitis Code(s): K51.90 - ULCERATIVE COLITIS, UNSPECIFIED, WITHOUT COMPLICATIONS Qualifiers: Ulcerative colitis location: unspecified ulcerative colitis location Digestive disease complication type: with rectal bleeding Qualified Code(s) : K51.911 - Ulcerative colitis, unspecified with rectal bleeding (4) Ulcerative colitis confined to rectum Code(s): K51.20 - ULCERATIVE (CHRONIC) PROCTITIS WITHOUT COMPLICATIONS Visit type - Emergency Visit Emergency Visit: Yes ED Registration Date: 09/20/16 Care time: The patient presented to the Emergency Department on the above date and was hospitalized for further evaluation of their emergent condition. - New Patient This patient is new to me today: No - Critical Care Critical Care patient: No
[2016-09-23] MEDS ORDERED: POTASSIUM CHLORIDE TABS 20 MEQ TABLET.ER (FP) PO ONE (15:14)
--- NOTE | 2016-09-23 16:21 | PN ---
GI Progress Note Subjective: Had increased abdominal pain with bleeding / loose BM's earlier in AM / last night. States feeling much better and was sitting up, tolerating eating lunch. Family was present - Objective Vital Signs: Vital Signs Temperature 98.7 F 09/23/16 14:13 Pulse Rate 82 09/23/16 14:13 Respiratory Rate 20 09/23/16 07:34 Blood Pressure 121/76 09/23/16 14:13 O2 Sat by Pulse Oximetry (%) 98 09/23/16 09:00 Constitutional: Calm Eyes: No: Sclera Icterus Cardiovascular: Yes: Regular Rate and Rhythm Respiratory: Yes: CTA Bilaterally Gastrointestinal Inspection: No: Distention ...Auscultate: Yes: Normoactive Bowel Sounds ...Palpate: Yes: Tenderness (very mild TTP lower abdomen) ...Percussion: No: Tympanitic Edema: No Neurological: Yes: Alert, Oriented Labs: CBC, BMP 09/23/16 06:20 09/23/16 06:20 INR, PTT INR 1.05 (0.82-1.09) 09/20/16 10:50 Hepatic Panel Total Bilirubin 0.3 mg/dL (0.2-1.0) D 09/22/16 06:30 AST 17 U/L (15-37) D 09/22/16 06:30 ALT 25 U/L (12-78) D 09/22/16 06:30 Alkaline Phosphatase 61 U/L (45-117) 09/22/16 06:30 Albumin 2.8 g/dl (3.4-5.0) L 09/22/16 06:30 Microbiology 09/21/16 02:00 Stool Clostridium difficile Antigen (MILE) - neg 09/21/16 02:00 Stool Clostridium difficile Toxin Assay - neg 09/21/16 02:00 Colon Fluid Parasite Direct Smear - neg 09/21/16 02:00 Colon Fluid Giardia Antigen (MILE) - neg 09/21/16 07:10 Blood - Peripheral Venous TB Test (QFT) (MILE) - Pending 09/21/16 02:00 Stool Salmonella/Shigella Culture - Preliminary 09/21/16 02:00 Stool Escherichia coli 0157 Culture - Preliminary NO ENTERIC PATHOGENS, 24 HOURS, ON PRIMARY PLATES NO ENTERIC PATHOGENS, 24 HOURS, ON PRIMARY PLATES NO ENTERIC PATHOGENS, 24 HOURS, ON PRIMARY PLATES NO ENTERIC PATHOGENS, 24 HOURS, ON PRIMARY PLATES Laboratory Tests 09/21/16 09/21/16 07:10 07:10 TPMT Activity, Quant Pending Vitamin D 25-Hydroxy 37.8 SUSHANT Screen Negative c-ANCA Pending Proteinase 3 (PR3) Pending p-ANCA Pending Atypical p-ANCA Pending Myeloperoxidase Ab Pending S.cerevisiae IgG Ab Pending S. cerevisiae IgG/IgA Pending Problem List - Problems (1) Ulcerative colitis Assessment/Plan: Increased symptoms last night and this morning, now improved. Suspect that she may have been passing blood from biopsies along with residual liquids from colonoscopy Would continue Prednisone 40mg once daily for now OK to resume Lialda (patien's own): can take 4 pills daily (previously taking 2 = 2.4g) Added calcium/Vit D supplementation while patient on steroid therapy Potassium repleted. ordered magnesium/BMP for tomorrow Ordered hepatitis B serologies for tomorrow given anticipated remicade therapy Low residue diet Code(s): K51.90 - ULCERATIVE COLITIS, UNSPECIFIED, WITHOUT COMPLICATIONS Qualifiers: Ulcerative colitis location: unspecified ulcerative colitis location Digestive disease complication type: with rectal bleeding Qualified Code(s) : K51.911 - Ulcerative colitis, unspecified with rectal bleeding
--- NOTE | 2016-09-23 17:17 | PN ---
Teaching Attending Note Name of Resident: Aggie Mac ATTENDING PHYSICIAN STATEMENT I saw and evaluated the patient. I reviewed the resident's note and discussed the case with the resident. I agree with the resident's findings and plan as documented. evaluated at 1000 this morning SUBJECTIVE: significant abdominal pain and feels lethargic after being up all night with multiple BM. had 9 loose BM with blood mixed in. did not attempt to eat breakfast this morning and has no appetite. denies CP, SOb,fever, chills OBJECTIVE: Last Vital Signs Temp Pulse Resp BP Pulse Ox 98.7 F 82 20 121/76 98 09/23/16 14:13 09/23/16 14:13 09/23/16 07:34 09/23/16 14:13 09/23/16 09:00 refused physical exam, requested to be left to sleep ASSESSMENT AND PLAN: 25 yo F with PMH UC presented to the ER and was admitted for further evaluation of their emergent condition 1. Moderate UC flare- multiple bloody BM overnight, likely due to bowel prep given for colonoscopy. continue current management, consider switching steroid to IV if no improvement later in the day. will need to speak with GI about duration of steroid and Falgyl. today is day 4. possibility of initiating biologic agent on discharge. GI on board. 2. Normocytic anemia- hgb stablized. will monitor in presence of rectal bleeding 3. hypokalemia- refused potassium IV. po given. will likely require to leave with oral supplementation while on steroids. GI losses and steroid induced 4. DVT ppx-hep sq 5. d/c planning once able to tolerate po.
[2016-09-23] MEDS: ACETAMINOPHEN 325 MG TABLET (FP) PO PRN (21:49)
[2016-09-24] MEDS: METRONIDAZOLE 500 MG PREMIXED 100 ML IVPB SCH ×2 (01:26→09:17)
[2016-09-24] MEDS: ACETAMINOPHEN 325 MG TABLET (FP) PO PRN (04:48)
[2016-09-24 07:46] LABS: MCH 30.1 pg (25.7-33.7); MCHC 34.3 g/dl (32.0-36.0); MEAN CELL VOLUME 87.5 fl (80-96); MEAN PLT VOLUME 7.9 fl (7.5-11.1); PLATELET COUNT 212 K/MM3 (134-434); RDW 12.6 % (11.6-15.6); WHITE BLOOD COUNT 10.9 K/mm3 (4.0-10.0)
[2016-09-24 07:48] LABS: CALCIUM 7.9 mg/dL (8.5-10.1); MAGNESIUM 1.6 mg/dL (1.8-2.4)
[2016-09-24 07:50] LABS: CREATININE 0.7 mg/dL (0.55-1.02)
[2016-09-24] MEDS: DEXTROSE 5%-0.45% SALINE 1,000 ML IV SCH (08:21)
[2016-09-24] MEDS: predniSONE 20 MG TABLET (UD) PO SCH ×2 (08:26→09:32)
[2016-09-24] MEDS: HEPARIN NA (PORCINE) 5,000 UNITS/ML 1ML VIAL SQ SCH (09:17)
[2016-09-24] MEDS ORDERED: CALCIUM 250MG/VIT-D 125 UNITS 1 COMBO TABLET PO SCH (10:00)
[2016-09-24 10:06] LABS: METAMYELOCYTE 3 % (0-2); PLATELET ESTIMATE ADEQUATE (NORMAL)
[2016-09-24 10:07] LABS: DOHLE BODIES 1+; TOXIC GRANULATION 2+
--- NOTE | 2016-09-24 13:09 | PN ---
Teaching Attending Note Name of Resident: Aggie Mac ATTENDING PHYSICIAN STATEMENT I saw and evaluated the patient. I reviewed the resident's note and discussed the case with the resident. I agree with the resident's findings and plan as documented. SUBJECTIVE:states pain has improved. tolerating diet. 4 loose BM since yesterday with some mild bleeding. deneis CP, SOB, fever, chills OBJECTIVE: Last Vital Signs Temp Pulse Resp BP Pulse Ox 99.7 F H 78 20 120/74 98 09/24/16 10:09/24/16 10:00 09/24/16 10:09/24/16 10:09/24/16 09:00 General NAD Abdomen soft diffusely tender > in LLQ no rebound or guarding ASSESSMENT AND PLAN: 25 yo F with PMH UC presented to the ER and was admitted for further evaluation of their emergent condition 1. Moderate UC flare- clinically improved. cont Flagyl for 7 days, prednisone 40mg. plan to start biologic as outpatient. pt to follow up wtih GI next week. 2. Normocytic anemia- hgb stablized. will monitor in presence of rectal bleeding 3. hypokalemia- Kcl 40meq po. will d/c on potassium supplements. instructed to take until diarrhea resolved. repeat electolytes next week with PMD. 4. Hypomangesemia- Mg 800mg 5. DVT ppx-hep sq 6. d/c home
[2016-09-24] MEDS ORDERED: MAGNESIUM OXIDE 400 MG TABLET (FP) PO ONE (13:30)
[2016-09-24] MEDS ORDERED: POTASSIUM CHLORIDE 40 MEQ/30 ML UNIT DOSE CUP PO ONE (13:30)
[2016-09-24 14:04] VITALS: BP 122/62; PULSE 80; TEMP 98.9
[2016-09-24] MEDS ORDERED: POTASSIUM CHLORIDE TABS 20 MEQ TABLET.ER (FP) PO SCH (14:15)
--- NOTE | 2016-09-24 15:21 | PN ---
GI Progress Note Subjective: GI NOte: Cramps are much milder. Having semisolid stools. Took potassium tablet. - Objective Vital Signs: Vital Signs Temperature 98.9 F 09/24/16 13:55 Pulse Rate 80 09/24/16 13:55 Respiratory Rate 20 09/24/16 10:00 Blood Pressure 122/62 09/24/16 13:55 O2 Sat by Pulse Oximetry (%) 98 09/24/16 09:00 CBC,CMP WBC 10.9 K/mm3 (4.0-10.0) H 09/24/16 06:10 RBC 3.81 M/mm3 (3.60-5.2) 09/24/16 06:10 Hgb 11.5 GM/dL (10.7-15.3) 09/24/16 06:10 Hct 33.4 % (32.4-45.2) 09/24/16 06:10 MCV 87.5 fl (80-96) 09/24/16 06:10 MCHC 34.3 g/dl (32.0-36.0) 09/24/16 06:10 RDW 12.6 % (11.6-15.6) 09/24/16 06:10 Plt Count 212 K/MM3 (134-434) 09/24/16 06:10 MPV 7.9 fl (7.5-11.1) 09/24/16 06:10 Neutrophils % 40.0 % (42.8-82.8) L 09/24/16 06:10 Lymphocytes % 21.0 % (8-40) D 09/24/16 06:10 Monocytes % 11.0 % (3.8-10.2) H 09/24/16 06:10 Eosinophils % 2.0 % (0-4.5) D 09/24/16 06:10 Basophils % 0.1 % (0-2.0) 09/21/16 07:10 Band Neutrophils 21.0 % (0-10) H D 09/24/16 06:10 Metamyelocytes 3 % (0-2) H D 09/24/16 06:10 Myelocytes 2 % (0-2) 09/24/16 06:10 Promyelocytes 1 (0-1) 09/22/16 06:30 Differential Comment Manual diff done 09/23/16 06:20 Reactive Lymphocytes 1 % (0-80) 09/24/16 06:10 Toxic Granulation 2+ 09/24/16 06:10 Dohle Bodies 1+ 09/24/16 06:10 Platelet Estimate Adequate (NORMAL) 09/24/16 06:10 Platelet Comment No clumping noted 09/24/16 06:10 RBC Morphology Appears normal 09/22/16 06:30 Morphology Comment Slide scanned 09/22/16 06:30 Retic Count 1.33 % (0.5-1.5) 09/23/16 06:20 Sodium 141 mmol/L (136-145) 09/24/16 06:10 Potassium 3.1 mmol/L (3.5-5.1) L 09/24/16 06:10 Chloride 103 mmol/L (98-107) 09/24/16 06:10 Carbon Dioxide 30 mmol/L (21-32) 09/24/16 06:10 Anion Gap 8 (8-16) 09/24/16 06:10 BUN 4 mg/dL (7-18) L D 09/24/16 06:10 Creatinine 0.7 mg/dL (0.55-1.02) 09/24/16 06:10 Creat Clearance w eGFR > 60 (>60) 09/22/16 06:30 Random Glucose 115 mg/dL (74-106) H 09/24/16 06:10 Calcium 7.9 mg/dL (8.5-10.1) L 09/24/16 06:10 Magnesium 1.6 mg/dL (1.8-2.4) L 09/24/16 06:10 Total Bilirubin 0.3 mg/dL (0.2-1.0) D 09/22/16 06:30 AST 17 U/L (15-37) D 09/22/16 06:30 ALT 25 U/L (12-78) D 09/22/16 06:30 Alkaline Phosphatase 61 U/L (45-117) 09/22/16 06:30 C-Reactive Protein 3.3 MG/DL (0.00-0.3) H D 09/23/16 06:20 Total Protein 6.3 g/dl (6.4-8.2) L 09/22/16 06:30 Albumin 2.8 g/dl (3.4-5.0) L 09/22/16 06:30 Vitamin D 25-Hydroxy 37.8 ng/mL (30.0-100.0) 09/21/16 07:10 Constitutional: No Distress Cardiovascular: Yes: Regular Rate and Rhythm Respiratory: Yes: CTA Bilaterally ...Auscultate: Yes: Hyperactive Bowel Sounds ...Palpate: Yes: Soft, Other (nontender) Labs: CBC, BMP 09/24/16 06:10 09/24/16 06:10 INR, PTT INR 1.05 (0.82-1.09) 09/20/16 10:50 Assessment/Plan Ulcerative colitis flare responding to steroids and antibiotics. Plan is to arrange Remicade as an outpatient and wean off steroids. She will continue her mesalamine and followup in our office . Problem List - Problems (1) Ulcerative colitis confined to rectum Code(s): K51.20 - ULCERATIVE (CHRONIC) PROCTITIS WITHOUT COMPLICATIONS (2) Bloody diarrhea Code(s): R19.7 - DIARRHEA, UNSPECIFIED (3) Abdominal pain Code(s): R10.9 - UNSPECIFIED ABDOMINAL PAIN (4) Weight loss Code(s): R63.4 - ABNORMAL WEIGHT LOSS
[2016-09-25 00:07] LABS: C-ANCA <1:20 titer (Neg:<1:20); MYELOPEROXIDASE ANTIBODY <9.0 U/mL (0.0-9.0); P-ANCA <1:20 titer (Neg:<1:20); PROTEINASE-3 ANTIBODY <3.5 U/mL (0.0-3.5)
[2016-09-25 14:11] LABS: HEP B SURFACE AB Reactive (.)
--- NOTE | 2016-09-25 14:22 | DS ---
Physical Exam: SUBJECTIVE: Patient seen and examined, tolerating regular diet, less diarrhea, Afebrile. Abdominal tenderness improved. OBJECTIVE: PHYSICAL EXAM GENERAL: The patient is pale, awake, alert, and fully oriented, in no acute distress. HEAD: Normal with no signs of trauma. LUNGS: Breath sounds equal, clear to auscultation bilaterally, no wheezes, no crackles, no accessory muscle use. HEART: Regular rate and rhythm, S1, S2 without murmur, rub or gallop. ABDOMEN: Soft, tender b/l lower quadrants, nondistended, normoactive bowel sounds, no guarding, no rebound, no hepatosplenomegaly, no masses. EXTREMITIES: 2+ pulses, warm, well-perfused, no edema. NEUROLOGICAL: Cranial nerves II through XII grossly intact. Normal speech, gait not observed. PSYCH: Normal mood, normal affect. SKIN: Warm, dry, normal turgor, no rashes or lesions noted. LABS Laboratory Results - last 24 hr 09/21/16 09/23/16 09/24/16 07:10 08:00 06:10 c-ANCA <1:20 Proteinase 3 (PR3) <3.5 p-ANCA <1:20 Atypical p-ANCA 1:160 H Myeloperoxidase Ab <9.0 Hep A IgM Ab Confirm Negative Hepatitis A Ab Total Positive H Hep Bs Antigen Negative Hep Bs Antibody Reactive Hep B Core Total Ab Negative Hepatitis C Antibody 0.2 HOSPITAL COURSE: Date of Admission:09/20/16 Date of Discharge: 09/25/16 This is a 25 year old female with a past medical history of ulcerative colitis, admitted to hospital for UC flare up. Patient was having multiple episodes of bloody diarrhea and abdominal tenderness. Patient initially put npo, IVF, prohpylactic IV antibiotic flagyl (allergic to ceftriaxone) and steroids. CT imaging did show severely inflamed colitis worse at hepatic flexure; no free air or abscess. Colonoscopy limited due to inflammation; pathology; showing crypts lesion; no granulomas. Diet was advanced as tolerated, condition improved with medications. Advise to follow up with Dr. Ingram for steroid taper and probable start of new medication Remicade, due to the severity of her condition. Patient was hypokalemic most likely related to diarrhea, potassium replaced. She was sent home on oral potassium supplement, also daily calcium and vitamin D. Patient advised to continue protonix while on steroids to prevent ulcer formation. Minutes to complete discharge: 35 Discharge Summary Reason For Visit: ULCERATIVE COLITIS Condition: Improved - Instructions Diet, Activity, Other Instructions: Ms. Olson, you have experienced a major flare of ulcerative colitis. Please follow up with Dr. Ingram with in a week to discuss further treatment and plan of care including starting Remicade medication. Please continue to take the prescribed steroids until Dr. Ingram instructs you not too. We would like you to take the potassium until you are free of diarrhea. You can also follow up with Dr. Ingram to recheck your potassium levels. Complete course of antibiotic prescribed. We also recommend daily calcium and vitamin D. Follow up with your primary care doctor next week If you develop fever (temp >101) or if your diarrhea worsens return to the ER. Referrals: Liz Ingram MD [Staff Physician] - Disposition: HOME - Home Medications Comprehensive Discharge Medication List: Ambulatory Orders Levonorgestrel-Ethin Estradiol [Orsythia-28 Tablet] 1 each PO DAILY 03/27/15 Mesalamine [Lialda] 2.4 gm PO DAILY 03/27/15 Cholecalciferol (Vitamin D3) [Vitamin D3 -] 1,000 unit PO DAILY 09/20/16 Calcium 250Mg/Vit-D 125 Units [Oscal 250 mg+D -] 2 tab PO DAILY #60 tab Mesalamine Enema [Rowasa Enema -] 4 gm RC ONCE #30 enema 09/24/16 Metronidazole 500 mg PO TID #11 tab 09/24/16 Potassium Chloride [K-Dur -] 20 meq PO DAILY #7 tablet.er 09/24/16 Prednisone [Deltasone -] 20 mg PO DAILY #28 tab 09/24/16 Problem List - Problems (1) Abdominal pain Code(s): R10.9 - UNSPECIFIED ABDOMINAL PAIN (2) Bloody diarrhea Code(s): R19.7 - DIARRHEA, UNSPECIFIED (3) Ulcerative colitis Code(s): K51.90 - ULCERATIVE COLITIS, UNSPECIFIED, WITHOUT COMPLICATIONS Qualifiers: Ulcerative colitis location: unspecified ulcerative colitis location Digestive disease complication type: with rectal bleeding Qualified Code(s) : K51.911 - Ulcerative colitis, unspecified with rectal bleeding (4) Ulcerative colitis confined to rectum Code(s): K51.20 - ULCERATIVE (CHRONIC) PROCTITIS WITHOUT COMPLICATIONS This patient is new to me today: No Emergency Visit: Yes ED Registration Date: 09/20/16 Care time: The patient presented to the Emergency Department on the above date and was hospitalized for further evaluation of their emergent condition. Critical Care patient: No - Discharge Referral Referred to [facility] No
== END 2016-09-24 15:51 | disposition home or self-care (01) | DRG 387 ==
LOC: JER 09:38 → JERBED 14:50 → J6S 17:56
PROVIDERS: ADMIT Internal Medicine; ATTEND Internal Medicine
PROC: 0DBL8ZX Excision of Transverse Colon, Via Natural or Artificial Opening Endoscopic, Diagnostic (ICD-10-PCS; 2016-09-22)
PROC: 0DBN8ZX Excision of Sigmoid Colon, Via Natural or Artificial Opening Endoscopic, Diagnostic (ICD-10-PCS; principal; 2016-09-22 11:00)
DX: K51.90 Ulcerative colitis, unspecified, without complications (principal); E87.6 Hypokalemia; R10.9 Unspecified abdominal pain; D64.9 Anemia, unspecified; E83.42 Hypomagnesemia; R63.4 Abnormal weight loss; Z68.22 Body mass index [BMI] 22.0-22.9, adult
CPT/HCPCS: 36415; 74177-TC; 80048; 80053; 82306; 82542; 83520; 83735; 83993; 84703; 85025; 85044; 85610; 86038; 86140; 86256; 86480; 86671; 86704; 86706; 86708; 86850; 86900; 86901; 87045; 87046; 87177; 87209; 87324; 87328; 87329; 87340; 87449; 88305-TC; 99284-25